=== PATIENT | male | born 1985 | race Caucasian/White ===

== ENCOUNTER 2017-03-14 12:15 | Emergency (ER) | payer SELFPAY | END 2017-03-14 17:15 | disposition home or self-care (01) | LOC: D.ER 12:15 | DX: R51 Headache (principal); B34.9 Viral infection, unspecified; I10 Essential (primary) hypertension ==

== ENCOUNTER 2017-03-16 07:16 | Emergency (ER) | payer SELFPAY ==
[2017-03-16 07:57] LABS: BASOPHILS 0.2 % (0-2); HEMATOCRIT 48.1 % (42.0-54.0); HEMOGLOBIN 17.7 g/dL (13.5-17.5); IMMATURE GRANULOCYTES 0.2 % (0-5); LYMPHOCYTES 23.5 % (15-50); MCH 32.8 pg (26.0-34.0); MCHC 36.8 g/dL (31.0-37.0); MCV 89.2 fL (80.0-100.0); MEAN PLATELET VOLUME 10.5 fL (7.4-10.4); MONOCYTES 7.4 % (2-11); NEUTROPHILS 67.7 % (40-80); PLATELET COUNT 223 10x3/uL (130-400); RBC 5.39 10x6/uL (4.20-6.10); RDW 12.4 % (11.5-14.5); WBC 11.6 10x3/uL (4.8-10.8)
[2017-03-16 08:11] LABS: ALBUMIN 4.7 g/dL (3.4-5.0); ANION GAP 16.9 mmol/L (8-16); BILIRUBIN - TOTAL 1.34 mg/dL (0.2-1.3); CALCIUM 9.4 mg/dL (8.5-10.1); CARBON DIOXIDE 22.5 mmol/L (21.0-32.0); CREATININE - SERUM 1.3 mg/dL (0.6-1.3); POTASSIUM - SERUM 3.4 mmol/L (3.5-5.1)
[2017-03-16 08:36] LABS: APPEARANCE CLEAR (CLEAR); BILIRUBIN NEGATIVE (NEGATIVE); COLOR DK YELLOW (YELLOW); GLUCOSE NEGATIVE (NEGATIVE); KETONE NEGATIVE (NEGATIVE); NITRITE NEGATIVE (NEGATIVE); PROTEIN 1+ mg/dL (NEGATIVE); UROBILINOGEN NORMAL (NORMAL)
[2017-03-16 08:41] LABS: BACTERIA MANY /hpf (NONE SEEN); EPITHELIAL CELLS 0-5 /hpf (0-5); HYALINE CAST RARE /lpf (NONE SEEN); MUCUS >1+ /lpf (NONE SEEN)
== END 2017-03-16 09:45 | disposition home or self-care (01) ==
LOC: D.ER 07:16
PROVIDERS: Emergency Medicine
DX: N20.1 Calculus of ureter (principal); N39.0 Urinary tract infection, site not specified; I10 Essential (primary) hypertension; F17.200 Nicotine dependence, unspecified, uncomplicated

== ENCOUNTER 2017-07-02 08:33 | Emergency (ER) | payer SELFPAY ==
[2017-07-02 09:15] LABS: BASOPHILS 0.2 % (0-2); EOSINOPHILS 3.1 % (0-7); HEMATOCRIT 44.8 % (42.0-54.0); HEMOGLOBIN 16.3 g/dL (13.5-17.5); IMMATURE GRANULOCYTES 0.1 % (0-5); LYMPHOCYTES 28.3 % (15-50); MCH 32.6 pg (26.0-34.0); MCHC 36.4 g/dL (31.0-37.0); MCV 89.6 fL (80.0-100.0); MEAN PLATELET VOLUME 10.3 fL (7.4-10.4); NEUTROPHILS 58.3 % (40-80); RDW 12.4 % (11.5-14.5); WBC 8.9 10x3/uL (4.8-10.8)
[2017-07-02 09:19] LABS: PLATELET COUNT 177 10x3/uL (130-400)
[2017-07-02 09:28] LABS: ALBUMIN 3.7 g/dL (3.4-5.0); ALKALINE PHOSPHATASE 73 U/L (46-116); ALT (SGPT) 26 U/L (10-68); CALC OSMOLALITY 281 mosm/kg (275-300); CALCIUM 8.9 mg/dL (8.5-10.1); CARBON DIOXIDE 27.3 mmol/L (21.0-32.0); CHLORIDE - SERUM 107 mmol/L (98-107); CREATININE - SERUM 0.9 mg/dL (0.6-1.3); GLUCOSE 109 mg/dL (74-106); POTASSIUM - SERUM 4.2 mmol/L (3.5-5.1); PROTEIN - SERUM 6.9 g/dL (6.4-8.2); SODIUM 142 mmol/L (136-145); UREA NITROGEN 8 mg/dL (7-18); eGFR NON AFRICAN AMERICAN > 90 mL/min (90-120)
[2017-07-02 09:39] LABS: CHOL - HDL RATIO 3.8 ratio (2.3-4.9); CHOLESTEROL, TOTAL 170 mg/dL (0-200); CREATINE KINASE 180 UL (21-232); HDL CHOLESTEROL 45 mg/dL (32-96); LDL CHOLESTEROL 107 mg/dL (0-100); LDL-HDL RATIO 2.4 ratio (1.5-3.5); TRIGLYCERIDE 94 mg/dL (30-200)
[2017-07-02 09:43] LABS: TROPONIN-I < 0.017 ng/mL (0.000-0.060)
== END 2017-07-02 10:28 | disposition home or self-care (01) ==
LOC: D.ER 08:33
PROVIDERS: Family Medicine
DX: R07.89 Other chest pain (principal); I10 Essential (primary) hypertension

== ENCOUNTER 2018-02-26 14:51 | Emergency (ER) | payer SELFPAY ==
[~2018-02-26] VITALS: Ht 182.9 cm; Wt 75.0 kg
[2018-02-26 15:01] VITALS: Ht 182.9 cm; Wt 75.0 kg
[2018-02-26 16:23] VITALS: BP 147/98
== END 2018-02-26 16:23 | disposition home or self-care (01) ==
LOC: D.ER 14:51
DX: Z03.89 Encounter for observation for other suspected diseases and conditions ruled out (principal); I10 Essential (primary) hypertension